=== PATIENT | female | born 1970 | race Native Hawaiian/Other Pacific Islander ===

== ENCOUNTER 2019-11-29 08:48 | Outpatient (CLI) | payer BC | END 2019-11-29 19:26 | disposition home or self-care (01) | LOC: US 08:48 | DX: I12.9 Hypertensive chronic kidney disease with stage 1 through stage 4 chronic kidney disease, or unspecified chronic kidney disease (principal); N18.6 End stage renal disease; Z99.2 Dependence on renal dialysis; E11.9 Type 2 diabetes mellitus without complications; E78.5 Hyperlipidemia, unspecified ==

== ENCOUNTER 2020-02-18 10:13 | Outpatient (CLI) | payer OTHER ==
[2020-02-18 10:39] LABS: PLATELET COUNT 227 K/uL (152-353)
[2020-02-18 11:04] LABS: POTASSIUM 3.8 mmol/L (3.6-5.2)
== END 2020-02-18 23:53 | disposition home or self-care (01) ==
LOC: LABW 10:13
PROVIDERS: Internal Medicine Nephrology
DX: E11.9 Type 2 diabetes mellitus without complications (principal); E78.5 Hyperlipidemia, unspecified; N17.8 Other acute kidney failure; N18.3 Chronic kidney disease, stage 3 (moderate); I12.9 Hypertensive chronic kidney disease with stage 1 through stage 4 chronic kidney disease, or unspecified chronic kidney disease
CPT/HCPCS: 36415; 80053; 80061; 83036; 84439; 84443; 85027

== ENCOUNTER 2020-02-18 10:34 | Emergency (ER) | payer OTHER | END 2020-02-18 10:51 | disposition home or self-care (01) | LOC: ED 10:34 | DX: Z48.02 Encounter for removal of sutures (principal) | CPT/HCPCS: 99281 ==

== ENCOUNTER 2020-04-02 08:34 | Outpatient (CLI) | payer OTHER ==
[2020-04-02 09:19] LABS: POTASSIUM 4.3 mmol/L (3.6-5.2)
[2020-04-02 09:51] LABS: PLATELET COUNT 262 K/uL (152-353)
== END 2020-04-02 14:14 | disposition home or self-care (01) ==
LOC: LABW 08:34
PROVIDERS: ATTEND Internal Medicine Nephrology
DX: E11.9 Type 2 diabetes mellitus without complications (principal); E78.5 Hyperlipidemia, unspecified; N17.8 Other acute kidney failure; N18.3 Chronic kidney disease, stage 3 (moderate); I12.9 Hypertensive chronic kidney disease with stage 1 through stage 4 chronic kidney disease, or unspecified chronic kidney disease
CPT/HCPCS: 36415; 80053; 85027

== ENCOUNTER 2020-05-14 11:24 | Outpatient (CLI) | payer OTHER ==
[2020-05-14 12:23] LABS: POTASSIUM 3.8 mmol/L (3.6-5.2)
== END 2020-05-14 21:50 | disposition home or self-care (01) ==
LOC: LABW 11:24
PROVIDERS: Internal Medicine Nephrology
DX: E11.9 Type 2 diabetes mellitus without complications (principal); E78.5 Hyperlipidemia, unspecified; N17.8 Other acute kidney failure; N18.3 Chronic kidney disease, stage 3 (moderate); D63.1 Anemia in chronic kidney disease; J30.2 Other seasonal allergic rhinitis; M25.562 Pain in left knee; I12.9 Hypertensive chronic kidney disease with stage 1 through stage 4 chronic kidney disease, or unspecified chronic kidney disease
CPT/HCPCS: 36415; 80053